=== PATIENT | female | born 2000 | race Caucasian/White ===

== ENCOUNTER 2024-03-05 21:29 | Emergency (ER) | payer OTHER ==
[2024-03-05] MEDS ORDERED: Ibuprofen 200 MG TAB ONE ×2 (22:44→22:46)
== END 2024-03-05 22:50 | disposition home or self-care (01) ==
LOC: ERS 21:29
DX: S50.11XA Contusion of right forearm, initial encounter (principal); W22.8XXA Striking against or struck by other objects, initial encounter
CPT/HCPCS: 99283